=== PATIENT | male | born 1955 | race African-American/Black ===

== ENCOUNTER 2018-02-19 08:47 | Emergency (ER) | payer MEDICAID ==
[~2018-02-19] VITALS: Ht 177.8 cm; Wt 82.0 kg
[2018-02-19] MEDS ORDERED: IPRATROPIUM BROMIDE (0.02%) 0.5MG/2.5ML NEB HHN STA ×2 (09:03→12:03)
[2018-02-19] MEDS ORDERED: ALBUTEROL (0.083%) 2.5MG/3ML NEB HHN STA ×2 (09:03→12:03)
[2018-02-19] MEDS ORDERED: METHYLPREDNISOLONE SOD SUCC 125 MG/2 ML VIAL IV STA (09:03)
[2018-02-19] MEDS ORDERED: KETOROLAC 30MG/ML VIAL IV ONE (09:30)
[2018-02-19 14:02] VITALS: BP 147/87
== END 2018-02-19 14:03 | disposition home or self-care (01) ==
LOC: ER 08:51
DX: J44.1 Chronic obstructive pulmonary disease with (acute) exacerbation (principal); I10 Essential (primary) hypertension
CPT/HCPCS: 71045; 96374; 96375; 99285; J1885; J2930; J7611

== ENCOUNTER 2019-07-09 09:56 | Emergency (ER) | payer MEDICAID ==
[~2019-07-09] VITALS: Ht 172.7 cm; Wt 82.0 kg
[~2019-07-09 09:56] MED LIST: ALBU90AE INH; AMLO10TA80 MT; ASPI-1393 MT; HYDR-4135 PO; LOSA100T32 MT; PRED5TAB PO
[2019-07-09] MEDS ORDERED: IPRATROPIUM BROMIDE (0.02%) 0.5MG/2.5ML NEB HHN STA (10:29)
[2019-07-09] MEDS ORDERED: ALBUTEROL (0.083%) 2.5MG/3ML NEB HHN STA (10:29)
[2019-07-09] MEDS ORDERED: METHYLPREDNISOLONE SOD SUCC 125 MG/2 ML VIAL IV STA (10:29)
[2019-07-09] MEDS ORDERED: MAGNESIUM 2 G PREMIX 50 ML IV STA (10:29)
[2019-07-09 10:53] LABS: BASOPHILS % 0.4 % (0.0-2.0); EOSINOPHILS % 7.5 % (0.0-5.0); HEMATOCRIT. 39.9 % (42.0-52.0); HEMOGLOBIN. 13.4 g/dL (14.0-18.0); LYMPHOCYTES % 18.9 % (20.0-50.0); MEAN CORPUSCULAR HEMOGLOBIN 31.1 pg (28.0-32.0); MEAN CORPUSCULAR VOLUME 92.8 fL (80.0-94.0); MEAN PLATELET VOLUME 8.6 fl (7.4-10.4); MONOCYTES % 7.1 % (2.0-8.0); NEUTROPHILS % 66.1 % (40.0-76.0); PLATELET 251 x1000/uL (130-400); RED BLOOD CELL COUNT 4.29 mill/uL (4.7-6.1); RED CELL DISTRIBUTION WIDTH 14.2 % (11.6-14.6)
[2019-07-09 10:58] LABS: CHLORIDE 110 mEq/L (98-107)
[2019-07-09] MEDS ORDERED: POTASSIUM CHLORIDE 20MEQ TABLET SR PO ONE (12:15)
[2019-07-09 12:53] VITALS: BP 143/86
== END 2019-07-09 13:54 | disposition home or self-care (01) ==
LOC: ER 09:56
DX: J44.1 Chronic obstructive pulmonary disease with (acute) exacerbation (principal); E87.8 Other disorders of electrolyte and fluid balance, not elsewhere classified; I10 Essential (primary) hypertension; M19.90 Unspecified osteoarthritis, unspecified site; Z76.0 Encounter for issue of repeat prescription; Z79.82 Long term (current) use of aspirin
CPT/HCPCS: 36415; 71045; 80053; 83880; 84484; 85025; 93005; 94644; 96365; 96375; 99285; J2930; J3475; J7611; Z7610